=== PATIENT | female | born 1950 | race Caucasian/White ===

== ENCOUNTER 2025-01-26 21:39 | Emergency (ER) | payer MEDICARE, SELFPAY ==
[2025-01-26] VITALS (21 sets, daily range): BP systolic 83–177; BP diastolic 28–110; PULSE 30–126; RESP 12–19; TEMP 34–35.5; O2SAT 96–100; BMI 28.2
--- NOTE | ~2025-01-26 | XR_ITS ---
CLINICAL HISTORY: verify line placement and OG tube, ET tube 1 view chest x-ray Comparison: None provided Findings: The lungs are under expanded. Endotracheal tube tip 3 cm above the julio. Heart size is normal. Mild osteopenia. NG tube projected left upper quadrant/stomach. IMPRESSION: 1. Endotracheal tube tip 3 cm above the julio. 2. NG tube projected in left upper quadrant/stomach. 3. Underexpanded lungs. This document has been electronically signed by: Minh Sage MD on 01/26/2025 22:33:34
--- NOTE | ~2025-01-26 | CT_ITS ---
CLINICAL HISTORY: code, CVA?? CT head without contrast Comparison: None provided Findings: Left frontal, temporal and parietal intra-axial hematoma with surrounding vasogenic edema, area proximally 8 cm AP by 5 cm transverse by 6 cm craniocaudal with midline shift from left to right of approximately 1.6 cm, axial image number 36 of 57, with mass effect of the ventricles, with extension of the hemorrhage into the ventricular system. Interhemispheric falx subarachnoid hemorrhage extending to the tentorium. No significant atrophy-like change or white matter disease. The visualized paranasal sinuses and mastoid air cells are normal. The orbits are unremarkable. No skull fracture. IMPRESSION: 1. Large left frontal, temporal and parietal intraparenchymal hemorrhage with vasogenic edema and intraventricular extension with 1.6 cm midline shift from [id number]. 2. Interhemispheric falx and tentorial subarachnoid hemorrhages. This document has been electronically signed by: Minh Sage MD on 01/26/2025 22:57:28
[2025-01-26] MEDS: Ketamine HCl/NS 100 MG/10 ML SYRINGE IVPUSH (21:46)
--- NOTE | 2025-01-26 21:54 | ECG_ITS ---
Test Reason : UNRESPONSIVE Blood Pressure : */* mmHG Vent. Rate : 125 BPM Atrial Rate : 125 BPM P-R Int : 120 ms QRS Dur : 84 ms QT Int : 388 ms P-R-T Axes : * -25 74 degrees QTcB Int : 560 ms Sinus tachycardia Otherwise normal ECG No previous ECGs available Referred By: Isabel Davidson Electronically Signed By: Conner Ling
[2025-01-26 22:09] LABS: ABG HCO3 18 mmol/L (22-26); ABG O2 % Saturation 100.0 %
[2025-01-26 22:10] LABS: ABG Refer to POC result
--- NOTE | 2025-01-26 22:17 | ED_ITS ---
HPI - CPR General Chief Complaint: Cardiac Arrest/CPR Stated Complaint: cardiac arrest Time Seen by Provider: 01/26/25 21:59 Source: family, EMS and old records reviewed Mode of arrival: EMS History of Present Illness ED Provider: Dr. Mandy Collins HPI narrative: 74-year-old female with a history of tachycardia on metoprolol and Eliquis presenting via EMS after an apparent cardiac arrest at home. Patient was found unresponsive on the ground by her daughter and was brought in to the hospital by EMS. She was originally found to be apneic with no pulse. Original rhythm was PE a. She received 1 round of CPR with return of spontaneous circulation. Initial rhythm after ROS was bradyarrhythmia. No evidence of ST-elevation on her 12 lead per EMS. She was brought to the hospital with BVM and NPA in place. She never became responsive. There is vomit on her face. Last known well around 2:00 p.m.. Fingerstick glucose was in the 200s for EMS. No further information able to be obtained at this time. Related Data Allergies Allergy/AdvReac Type Severity Reaction Status Date / Time Unable to Assess Allergy Verified 01/26/25 22:01 Review of Systems 2 Review of Systems: Yes Unobtainable due to mental status PMFSH Social History Social History Advance Directives: Yes Advance Directives Information Provided: No Advance Directives on File: No Physical Exam 2 Exam: Exam: GENERAL: Unresponsive, intubated, GCS 3. SKIN: Pale, no rashes, trauma noted. HEENT: Normocephalic, atraumatic, unequal pupils, nonreactive to light, left > right. CHEST: Strong peripheral pulses, regular tachycardia, no murmurs rubs or gallops. PULMONARY: Apneic, course bilateral breath sounds with BVM ABDOMINAL: Softly distended, quiet bowel sounds. MUSCULOSKELETAL: No obvious injury. NEURO: GCS 3. Vital Signs: Vital Signs: Last Vital Signs Temp 93.2 F L 01/27/25 01:29 Pulse 80 01/27/25 01:29 Resp 20 01/27/25 01:29 BP 122/75 01/27/25 01:29 Pulse Ox 98 01/27/25 01:29 O2 Del Method Mechanical Ventil ation 01/27/25 01:29 FiO2 50 01/26/25 22:18 BMI result Body Mass Index 28.2 Medications Administered Discontinued Medications Generic Name Dose Route Start Last Admin Trade Name Pedro Luisq PRN Reason Stop Dose Admin Glucagon 1 mg 01/26/25 23:27 01/26/25 22:52 Glucagon Hcl 1 Mg Vial IVPUSH 01/26/25 23:28 1 mg ONCE ONE Administration Piperacillin Sod/Tazobactam 100 mls @ 200 mls/hr 01/26/25 22:15 01/26/25 23:14 Sod 4.5 gm/ Sodium Chloride IV 01/26/25 22:44 Infused ONCE ONE Infusion Vancomycin HCl 1,000 mg/ 535 mls @ 267.5 mls/hr 01/26/25 22:15 01/27/25 00:40 Vancomycin HCl 750 mg/ Sodium IV 01/27/25 00:14 Infused Chloride ONCE ONE Infusion Prothrombin Complex Concent ( 80 mls @ 480 mls/hr 01/26/25 22:32 01/26/25 23:14 Human) 2,000 unit/ IV IV 01/26/25 22:41 Infused Miscellaneous Supplies .Q10M ONE Infusion Sodium Chloride 150 mls @ 450 mls/hr 01/26/25 22:54 01/26/25 23:17 Sodium Chloride 3 % IV 01/26/25 23:13 Not Given ONCE ONE Norepinephrine Bitartrate 8 mg in 250 mls @ 0 mls/hr 01/26/25 23:00 01/27/25 01:28 Levophed IVCONT Infused .Q0M VONNIE Titration Protocol Per Protocol Propofol 1,000 mg in 100 mls @ 0 mls/hr 01/26/25 23:00 01/27/25 01:27 Diprivan IVCONT Infused .Q0M VONNIE Titration Protocol Per Protocol Sodium Chloride 150 mls @ 450 mls/hr 01/26/25 23:15 01/26/25 23:44 Sodium Chloride 3 % IV 01/26/25 23:34 Infused ONCE ONE Infusion Ketamine HCl 100 mg 01/26/25 22:55 01/26/25 21:46 Ketamine Hcl/Ns 100 Mg/10 Ml Syringe IVPUSH 01/26/25 22:56 100 mg ONCE ONE Administration Rocuronium [place] 100 mg 01/26/25 22:54 01/26/25 21:46 Rocuronium [place] 50 Mg/5 Ml Vial IVPUSH 01/26/25 22:55 100 mg ONCE ONE Administration Medical Decision Making Medical Decision Making MDM Narrative: 74-year-old female with unclear past medical history, likely atrial fibrillation due to her home medications of Eliquis and metoprolol presenting via EMS after being found unresponsive at home by family, CPR initiated by her daughter and ROSC achieved after 1 round of CPR by EMS. She has unequal pupils and sonorous respirations. Airway was established upon arrival to the emergency department by MELINDA Davidson using ketamine and rocuronium, large bore IVs in place. High suspicion for intracranial process such as intracranial hemorrhage versus large vessel occlusion. Based on what her daughter tells me who is now at bedside, patient has been feeling well lately. No recent illness including fever, cough or vomiting. She has been titrating her metoprolol because she felt like her heart rate was racing on and off over the last couple of days but otherwise has had no recent change in medications. She does not use illicit substances or alcohol according to her daughter. She has never had a seizure that the daughter is aware of but she was diagnosed with mini strokes at some point. Daughter is unclear on this detail. She has never had a true stroke. She has no focal neurologic deficits at baseline. She lives alone. Daughter reports that she found the patient lying on her back with her arms out straight beside her, sonorous respirations and totally unresponsive. She initiated CPR on scene when she arrived per dispatched erection. EMS continued CPR when they arrived. Ultimately achieved ROS. Patient is currently intubated on a propofol drip for sedation. Plan for CT imaging, blood work, ABG, reversal of Eliquis if she has a head bleed. Patient covered with Zosyn and vancomycin for potential aspiration pneumonia after vomiting during unresponsive state. 10:30 PM 01/26/2025 (Dr. Mandy Collins, D.Damien.) patient has evidence of large parenchymal/interventricular bleed. I am waiting for the radiology report but this does appear to be a large bleed with midline shift. We will contact [facility] for potential transfer for and neurosurgical consultation. Patient had an episode of bradycardia with a heart rate as low as 30, blood pressure dropped to 80/30. Initiated Levophed drip, given a dose of atropine with significant improvement in her blood pressure however, she is now hypertensive. Initiated propofol for sedation which had been originally turned off due to low blood pressures. Patient remains unresponsive off of sedation. Also initiated hypertonic saline to help with vasogenic edema. Patient is diuresing. I have updated her daughter on the plan. She understands that this is a devastating head bleed and she has a very poor prognosis. Reports that her mother would still want to be able to live if possible and request that everything continue to be done for her today. 10:35 PM 01/26/2025 (Dr. Mandy Collins D.O.) transfer center reports they have no bed availability but they will page the ICU and neuro ICU. 10:43 PM 01/26/2025 (Dr. Mandy Collins D.O.) case discussed with the [facility] transfer Center, Dr. Moore, neurosurgeon on-call. He reports her only hope would be to have an EVD placed. Recommends transfer ER to ER. Accepting is Dr. Ender Stacy. Discussed with daughter who is agreeable to transfer to [facility]. We have no critical care transport due to weather and availability. Next available transport is 2 a.m.. 11:43 PM 01/26/2025 (Dr. Mandy Collins D.O.) case discussed with [facility] transfer line, neuro ICU is not available but they do have intensive care beds. I spoke with the commercial census taker on-call who accepts patient for transfer, Dr. Galvan. Also discussed case with neurosurgeon on-call, Dr. Aquino, who has reviewed the patient's CT brain. She reports that this is a devastating bleed that is involving a large portion of the parenchyma and may not be amenable to EVD placement. Regardless, she will be evaluated when the patient arrives at [facility]. Called back [facility] to report that she will be going to [facility] instead. We are still trying to find critical care transport. Patient is accepted to the MICU [facility], room 217. Nurse to nurse [phone].. 12:10 AM 01/27/2025 (Dr. Mandy Collins, Jenny.O.) ALS transport available for transfer at this time. Patient remains hemodynamically rather unstable. Requiring both propofol and Levophed to maintain blood pressures with a systolic no higher than 140, but to maintain cerebral perfusion pressure. Her temperature is also very low at 93 degrees Fahrenheit, initiated [place]. Differential Diagnosis Differential Diagnoses: The differential diagnosis associated with the presentation includes arrhythmia, postictal state, infection, intracranial process such as hemorrhage, stroke or mass, electrolyte abnormality, hypercarbia, hypoxia, toxic encephalopathy, among many others. Broad-based workup was initiated to further evaluate the etiology of patient's symptoms based on the above exam and history. Admission/Observation Consideration of admission/observation: Escalation of care including admission/observation considered Lab Data MDM Lab Attestation statement: I reviewed the patient's lab results. 01/26/25 22:19 01/26/25 22:19 Labs: Lab Results 01/26/25 01/26/25 01/26/25 Range/Units 22:04 22:19 22:22 WBC 18.2 H (4.8-10.8) X10*3/uL RBC 4.67 (4.20-5.50) X10*6/uL Hgb 13.6 (12.0-16.0) g/dl Hct 40.7 (37.0-47.0) % MCV 87.2 (80.0-98.0) fL MCH 29.1 (27.0-33.0) pg MCHC 33.4 (31.0-35.0) g/dl RDW 12.4 (11.0-16.0) % Plt Count 251 (160-400) X10*3/uL MPV 8.6 L (9.4-12.3) fL Immature Gran % (Auto) 0.8 H (0.0-0.4) % Neut % (Auto) 87.5 H (45-73) % Lymph % (Auto) 5.4 L (20-40) % [place] % (Auto) 6.0 (2-11) % Eos % (Auto) 0.1 (0-4) % Baso % (Auto) 0.2 (0-2) % Lymph # (Auto) 1.0 L (1.2-4.9) X10*3/uL [place] # (Auto) 1.1 (0.1-1.2) X10*3/uL Eos # (Auto) 0.0 (0.0-0.4) X10*3/uL Baso # (Auto) 0.0 (0.0-0.2) X10*3/uL Abs Immat Gran (auto) 0.15 H (0.00-0.03) X10*3/uL Absolute Neuts (auto) 16.0 H (2.0-8.3) x10*3/uL Absolute Nucleated RBC 0.000 (0.0-0.012) X10*3/uL Nucleated RBC % (auto) 0.0 (0.0-0.2) /100WBC Hold Purple Top SEE NOTE Whole Blood PT (11.1-13.5) sec Whole Blood INR (0.9-1.1) Hold Blue Top SEE NOTE O2 Saturation 100.0 % ABG pH at Pt Temp 7.32 L (7.35-7.45) ABG pCO2 at Pt Temp 34 (32-45) mmHg ABG pO2 at Pt Temp 351 H (83-108) mmHg ABG HCO3 18 L (22-26) mmol/L ABG Base Excess (Actual) -6.9 mmol/L Sodium 144 (135-145) mmol/L Potassium 2.8 L* (3.3-5.1) mmol/L Chloride 110 H (96-108) mmol/L Carbon Dioxide 19 L (22-29) mmol/L Anion Gap 18 (12-20) BUN 17 H (9-16) mg/dL Creatinine 0.78 (0.5-1.4) mg/dL Estim Creat Clear Calc 54.1 Estimated GFR > 60 Random Glucose 218 H (60-115) mg/dL Lactic Acid 4.6 H* (0.5-2.0) mmol/L Calcium 7.9 L (8.4-10.2) mg/dL Magnesium 1.6 (1.6-2.6) mg/dL Total Bilirubin 0.3 (0.0-1.0) mg/dL AST 43 H (5-31) U/L ALT 13 (0-31) U/L Alkaline Phosphatase 70 (39-117) U/L Troponin I High Sens 371.6 H* (<3.5-17.0) ng/L NT-Pro-B Natriuret Pep 445.2 H (<300) pg/mL Total Protein 5.8 L (6.5-8.0) g/dL Albumin 3.7 (3.5-5.0) g/dL Hold Green Top See Note Hold Yellow Top See Note Urine Color Yellow Urine Appearance Clear Urine pH 5.5 (5.0-9.0) Ur Specific [place] 1.015 (1.005-1.025) Urine Protein Negative (Neg-Trace) mg/dL Urine Glucose (UA) 500 H (Negative) mg/dL Urine Ketones Trace (Negative) mg/dL Urine Blood Trace H (Negative) Urine Nitrite Negative (Negative) Ur Leukocyte Esterase Negative (Negative) Urine RBC 0-2 (0-2) /HPF Urine WBC 0-5 (0-5) /HPF Ur Squamous Epith Cells 0-2 (0-2) /HPF Urine Bacteria None Seen (None Seen) Hyaline Casts 0-2 (0-2) /LPF Urine Opiates Screen Not Detected (Not Detect) Ur Buprenorphine Scrn Not Detected (Not Detect) ng/mL Ur Oxycodone Screen Not Detected (Not Detect) ng/mL Urine Methadone Screen Not Detected (Not Detect) ng/mL Urine Fentanyl Screen Not Detected (Not Detect) Ur Barbiturates Screen Not Detected (Not Detect) Ur Phencyclidine Scrn Not Detected (Not Detect) Ur Amphetamines Screen Not Detected (Not Detect) U Benzodiazepines Scrn Not Detected (Not Detect) Urine Cocaine Screen Not Detected (Not Detect) U Marijuana (THC) Screen Not Detected (Not Detect) Ethyl Alcohol < 10 mg/dL 01/26/25 Range/Units 22:39 WBC (4.8-10.8) X10*3/uL RBC (4.20-5.50) X10*6/uL Hgb (12.0-16.0) g/dl Hct (37.0-47.0) % MCV (80.0-98.0) fL MCH (27.0-33.0) pg MCHC (31.0-35.0) g/dl RDW (11.0-16.0) % Plt Count (160-400) X10*3/uL MPV (9.4-12.3) fL Immature Gran % (Auto) (0.0-0.4) % Neut % (Auto) (45-73) % Lymph % (Auto) (20-40) % [place] % (Auto) (2-11) % Eos % (Auto) (0-4) % Baso % (Auto) (0-2) % Lymph # (Auto) (1.2-4.9) X10*3/uL [place] # (Auto) (0.1-1.2) X10*3/uL Eos # (Auto) (0.0-0.4) X10*3/uL Baso # (Auto) (0.0-0.2) X10*3/uL Abs Immat Gran (auto) (0.00-0.03) X10*3/uL Absolute Neuts (auto) (2.0-8.3) x10*3/uL Absolute Nucleated RBC (0.0-0.012) X10*3/uL Nucleated RBC % (auto) (0.0-0.2) /100WBC Hold Purple Top Whole Blood PT 13.5 (11.1-13.5) sec Whole Blood INR 1.1 (0.9-1.1) Hold Blue Top O2 Saturation % ABG pH at Pt Temp (7.35-7.45) ABG pCO2 at Pt Temp (32-45) mmHg ABG pO2 at Pt Temp (83-108) mmHg ABG HCO3 (22-26) mmol/L ABG Base Excess (Actual) mmol/L Sodium (135-145) mmol/L Potassium (3.3-5.1) mmol/L Chloride (96-108) mmol/L Carbon Dioxide (22-29) mmol/L Anion Gap (12-20) BUN (9-16) mg/dL Creatinine (0.5-1.4) mg/dL Estim Creat Clear Calc Estimated GFR Random Glucose (60-115) mg/dL Lactic Acid (0.5-2.0) mmol/L Calcium (8.4-10.2) mg/dL Magnesium (1.6-2.6) mg/dL Total Bilirubin (0.0-1.0) mg/dL AST (5-31) U/L ALT (0-31) U/L Alkaline Phosphatase (39-117) U/L Troponin I High Sens (<3.5-17.0) ng/L NT-Pro-B Natriuret Pep (<300) pg/mL Total Protein (6.5-8.0) g/dL Albumin (3.5-5.0) g/dL Hold Green Top Hold Yellow Top Urine Color Urine Appearance Urine pH (5.0-9.0) Ur Specific [place] (1.005-1.025) Urine Protein (Neg-Trace) mg/dL Urine Glucose (UA) (Negative) mg/dL Urine Ketones (Negative) mg/dL Urine Blood (Negative) Urine Nitrite (Negative) Ur Leukocyte Esterase (Negative) Urine RBC (0-2) /HPF Urine WBC (0-5) /HPF Ur Squamous Epith Cells (0-2) /HPF Urine Bacteria (None Seen) Hyaline Casts (0-2) /LPF Urine Opiates Screen (Not Detect) Ur Buprenorphine Scrn (Not Detect) ng/mL Ur Oxycodone Screen (Not Detect) ng/mL Urine Methadone Screen (Not Detect) ng/mL Urine Fentanyl Screen (Not Detect) Ur Barbiturates Screen (Not Detect) Ur Phencyclidine Scrn (Not Detect) Ur Amphetamines Screen (Not Detect) U Benzodiazepines Scrn (Not Detect) Urine Cocaine Screen (Not Detect) U Marijuana (THC) Screen (Not Detect) Ethyl Alcohol mg/dL Independent Interpretation I performed an independent interpretation of an: EKG and Plain X-Ray Interpretation: My independent interpretation of the ECG reveals normal sinus tachycardia with rate of 125, leftward axis, QTC 560, no ST elevations or depressions to suggest ischemic changes, no previous for comparison My independent interpretation of the chest x-ray reveals no consolidations, pulmonary edema, pleural effusion, pneumothorax, obvious bony abnormalities, ET tube in place, OG tube passes below the diaphragm. Radiology Impression Discussion of test interpretation with radiology: I have reviewed the radiologist's reading. Radiologist Impression: CT head without contrast Comparison: None provided Findings: Left frontal, temporal and parietal intra-axial hematoma with surrounding vasogenic edema, area proximally 8 cm AP by 5 cm transverse by 6 cm craniocaudal with midline shift from left to right of approximately 1.6 cm, axial image number 36 of 57, with mass effect of the ventricles, with extension of the hemorrhage into the ventricular system. Interhemispheric falx subarachnoid hemorrhage extending to the tentorium. No significant atrophy-like change or white matter disease. The visualized paranasal sinuses and mastoid air cells are normal. The orbits are unremarkable. No skull fracture. IMPRESSION: 1. Large left frontal, temporal and parietal intraparenchymal hemorrhage with vasogenic edema and intraventricular extension with 1.6 cm midline shift from [id number]. 2. Interhemispheric falx and tentorial subarachnoid hemorrhages. This document has been electronically signed by: Minh Sage MD on 01/26/2025 22:57:28 Independent Historian Clinical information obtained from an independent historian. History obtained from or confirmed by: EMS and Other (daughter) Chronic Conditions Patient?s care impacted by: Other (arrhythmia on DOAC) Procedures Central Line Placement Right Femoral: Time Out Performed: No Patient Placed on Monitor/Pulse Ox: Yes MD Prep: mask, gown and gloves Central Line Prep: Povidone-Iodine 1% Ultrasound Used for Placement: Yes Central Line Lumen Inserted: triple Post Procedure: sutured in place, good blood return, all ports aspirated, flushed, capped and sterile dressing applied Patient Tolerated Procedure: well and no complications Additional Comments: By Isabel Davidson PA-C Intubation Intubation Type:: Emergency Endotracheal Intubation Intubation Date:: 01/26/25 Time out performed: No sedative: Ketamine Mg Given: 100 paralytic: Rocuronium Mg Given: 100 Laryngoscope: fiber optic video scope ET Tube Size: 7.5 ET Tube Uncuffed: No Tube Secured Depth (cm): 20 Tube Secured Location: lips Tube Placement Confirmation: visualized tube passing through cords, equal breath sounds bilaterally, no breath sounds over epigastrium and confirmation by capnometry Patient Tolerated Procedure: well Intubation Complications: none Additional Comments: By Isabel Davidson PA-C Critical Care Time Critical Care Time Critical Care Time: Yes Total Critical Care Time: 150 Attestation: CRITICAL CARE TIME: 150 minutes of critical care time was spent in direct patient care at the bedside or in the immediate area with this patient. Critical care was necessary to treat or prevent imminent or life-threatening deterioration of the following conditions who hemodynamic instability, unresponsiveness due to intraparenchymal, intraventricular, subarachnoid hemorrhage on continuous oral anticoagulation. This patient is high risk for decompensation and/or . This time was spent assessing and managing the patient, interpreting labs and imaging, coordinating care with other medical providers, gathering history from either the patient, their representatives, EMS or chart review, and discussing management with [facility], [facility], neurosurgery, intensive care. Discharge Plan Discharge Clinical Impression: Acute spont intraparenchymal hemorrhage assoc w/ coagulopathy, Subarachnoid hemorrhage, Acute spontaneous intraventricular hemorrhage assoc w/ coagulopathy, On continuous oral anticoagulation, Acute hypokalemia, Acidosis, lactic, Demand ischemia of myocardium, Hemodynamic instability, Required emergent intubation Patient Disposition: er [facility] Hospital Transfer Details: [facility], ICU, accepting Dr. Galvan Interventions: Acute Care Transfer Worksheet (ED) Last Done: 01/27/25 01:29 Discharge Date/Time: 01/27/25 01:28 Print Language: Prydeinig
[2025-01-26 22:25] LABS: MANUAL DIFF FLAG NO
[2025-01-26 22:26] LABS: Hematocrit 40.7 % (37.0-47.0); Hemoglobin 13.6 g/dl (12.0-16.0); Imm Gran Abs Auto 0.15 X10*3/uL (0.00-0.03); Imm Gran Pct Auto 0.8 % (0.0-0.4); Lymphocytes Absolute Auto 1.0 X10*3/uL (1.2-4.9); Mean Corpuscular HGB Conc 33.4 g/dl (31.0-35.0); Mean Corpuscular Hemoglobin 29.1 pg (27.0-33.0); Mean Corpuscular Volume 87.2 fL (80.0-98.0); NRBC Abs Auto 0.000 X10*3/uL (0.0-0.012); NRBC Pct Auto 0.0 /100WBC (0.0-0.2); Platelet Count 251 X10*3/uL (160-400); Red Blood Count 4.67 X10*6/uL (4.20-5.50); White Blood Count 18.2 X10*3/uL (4.8-10.8)
[2025-01-26 22:40] LABS: Appearance Urine Clear; Glucose Urine UA 500 mg/dL (Negative); PH 5.5 (5.0-9.0); Specific Gravity - Urine 1.015 (1.005-1.025); UMIC TRIGGER UACC YES
[2025-01-26 22:43] LABS: Prothrombin Time Whole Bld POC 13.5 sec (11.1-13.5); ~PT, ~INR - Anti Coag Clinic 1.1 (0.9-1.1)
--- OUTSIDE RECORDS SUMMARY | 2025-01-26 22:48 | XMS_ITS | Clinical Summary ---
Author Organization [facility] Address [address] [place] [id number] Phone Care Team Providers Care Lock Technician Name Role Phone Bertrand Hubbard MD Primary Care Provider [phone] Allergies No known active allergies Medications vitamin E 100 units capsule Orally Active ascorbic acid, vitamin C, 500 mg Cap Orally Active MULTIVIT-MINERA LS/FERROUS FUM (MULTI VITAMIN ORAL) Daily Active glucosamine 500 mg Cap Take 1 capsule by mouth daily. with a meal Active omega-3 fatty acids (FISH OIL CONCENTRATE) 1,000 mg Cap Take 1 capsule by mouth daily. Active resveratrol 50 mg Cap Take 50 mg by mouth daily. Orally Active Medication-Free Text Zinc 10 MG Tablet, Sig: Orally Active coenzyme Q10 (CO Q-10) 30 mg capsule Take 30 mg by mouth daily. with a meal Active cholecalciferol , vitamin D3, (VITAMIN D3) 400 unit capsule Take 2 capsules by mouth daily. Active b complex vitamins capsule Take 1 capsule by mouth daily. Active apixaban (ELIQUIS) 5 mg tablet Take 1 tablet (5 mg total) by mouth 2 (two) times a day. 180 tablet 3 05/14/2024 Active atorvastatin (LIPITOR) 40 MG tablet Take 0.5 tablets (20 mg total) by mouth daily. 30 tablet 7 06/11/2024 Active metoprolol succinate (TOPROL-XL) 50 MG 24 hr tablet Take 0.5 tablets (25 mg total) by mouth every morning. 45 tablet 3 11/21/2024 Active Active Problems Problem Noted Date Diagnosed Date Other hyperlipidemia 05/14/2024 Atrial fibrillation with rapid ventricular respo nse 03/28/2023 Assessment & Plan (11/09/2023 12:52 PM EDT): Currently rate controlled at 71 bpm here in the office today. She is on metoprolol 50 mg daily and Eliquis 5 mg twice daily for rate control. She realizes that there is a lower dose of Eliquis and would like to be on the lower dose if she could. I did explain to her that she does not meet 2 of the 3 criteria which would be age greater then 80 years old, weight less than 60 kg and a creatinine greater than 1.5. She states she would like to find a holistic doctor to help her with her issues. I did recommend to her that she does not come off of her Eliquis even if she did find a holistic medication doctor to help her find supplements. Gold standard treatment for prevention of stroke would be anticoagulation and not garlic or other herbal supplements. She does report having a faster heart rate with some fluttering in her chest and I did offer her to have a Holter monitor however she wanted to see if she cut back on her trident gum chewing to see if this helps with this. I have encouraged her to continue exercising. She also is concerned with her statin and feels that her cholesterol ratio was not Horrible prior to starting the statin. Her cholesterol prior to starting the statin was 240, HDL 46, LDL 174, triglycerides 100 with a cholesterol HDL ratio 5.2. After atorvastatin 40 mg daily and her cholesterol which was drawn on 11/07/2023 shows a cholesterol of 184, HDL 58, LDL 106, triglycerides 98 and cholesterol/HDL ratio 3.2. I have agreed to allow her to try to reduce her atorvastatin to 20 mg daily we will recheck another lipid panel in 3 months. Assessment & Plan (05/09/2023 3:52 PM EST): She was found to have atrial fibrillation with RVR when she went to the emergency room. She was started on apixaban 5 mg twice daily and metoprolol 50 mg daily which she spontaneously converted to sinus rhythm. She will remain on these medications without change. She did have a CT head which does show some old infarcts but age is undetermined. Due to an elevated CHADS2 Vascor and having atrial fibrillation it would be recommended that she remain on anticoagulation. EKG today shows sinus rhythm, 62 bpm. She does come with a multitude of questions requesting whether she can travel to [place], continue exercising, questions whether she should go to cardiac rehab. She does not follow a great diet and knows it is high in sodium and sugar. I have asked her to cut back on both of those things to see if this will help with her PVCs that were noted on her monitor. We did review that monitor today. I also discussed with her cardiac rehab is something that she would not qualify for unless she had an event such as a stent, UT or cardiac surgery. As far as her activity she can resume her normal activities without restriction. Is also okay from a cardiac standpoint if she travels to [place]. Assessment & Plan (03/29/2023 11:59 AM EST): Cardiology was consulted. [id number] Score was 2, HAS-BLED Score 1 (AC should be considered pt low risk major bleed) Pt converted to NSR after CCB IV and was started on low-dose beta-shine. Lipid panel also showed increase in LDL cholesterol which is a risk factor for stroke and patient was started on atorvastatin 40 mg. Echocardiogram was also done which showed normal LV size and wall thickness with an EF of 60 to 65% and no clear wall motion abnormalities. Patient went into A-fib with RVR on 03/29 again, given IV Lopressor Encounters Date Type Department Care Team Description 11/21/2024 9:00 AM EDT Office Visit [facility] [address] [place] [address] 3rd Floor, [address] [place] [address] Alexx Goodman MD Atrial fibrillation with rapid ventricular response (Primary Dx); Hyperlipidemia, unspecified hyperlipidemia type; Encounter for anticoagulation discussion and counseling 11/06/2024 9:31 AM EDT - 11/06/2024 11:59 PM EDT Hospital Encounter [facility] [address] [place] [address] [place] [address] Teo Oliveros MD Discharge Disposition: Home or Self Care 11/05/2024 9:08 AM EDT - 11/05/2024 11:59 PM EDT Hospital Encounter [facility] [address] [place] [address] Teo Oliveros MD Discharge Disposition: Home or Self Care 05/14/2024 Procedure Pass [facility] [place] [address] from Last 3 Months Family History Medical History Relation Comments CV disease Father Leukemia Father Prostate cancer Father Breast cancer Mother Relation Status Comments Father Mother Social History Tobacco Use Types Packs/Day Years Used Date Smoking Tobacco: Former Cigarettes Q uit: 1999 Smokeless Tobacco: Never Tobacco Cessation:Counseling Given: Not Answered Alcohol Use Standard Drinks/Week Comments Not Currently 0 (1 standard drink = 0.6 oz pur e alcohol) quit 1988 Education Answer Date Recorded Are you interested in more education? Not on yola e 08/12/2022 Are you concerned about learning? Not on file 08/12/2022 No 08/12/2022 No 08/12/2022 Digital Access Answer Date Recorded No 09/10/2022 No 09/10/2022 Reliable internet access at home? Not on file 09/10/2022 Device with a working camera? Not on file Intimate Partner Violence Answer Date R ecorded Are you denied basic needs s uch as food, clothing, or medical care? No 02/18/2024 In the past 12 months have y ou been in a relationship with a person who hurts, threatens, or tries to control you? No 02/18/2024 Are you denied basic needs s uch as food, clothing, or medical care? No 02/18/2024 In the past 12 months have y ou been in a relationship with a person who hurts, threatens, or tries to control you? No 02/18/2024 Comments No Sex and Gender Information Value Date Recorded Sex Assigned at Female 03/28/2023 4:56 PM EST Legal Sex Female 10:00 PM EDT Gender Identity Choose not to disclose 12:36 PM EST Sexual Orientation Not on file Occupation Industry Job Start Date Job End Date Working Not on file Not on file Not on file Last Filed Vital Signs Vital Sign Reading Time Taken Comments Blood Pressure 122/60 11/21/2024 9:05 AM EDT Pulse 57 11/21/2024 9:05 AM EDT Temperature 36.6 C (97.9 F) 02/18/2024 10:46 PM EST Respiratory Rate 16 02/18/2024 10:46 PM EST Oxygen Saturation 97% 05/14/2024 11:00 AM EST Inhaled Oxygen Concentration - - Weight 64 kg (141 lb) 11/21/2024 9:05 AM EDT Height 154.9 cm (5' 0.98 ) 11/21/2024 9:05 AM ED T Body Mass Index 26.66 11/21/2024 9:05 AM EDT Plan of Treatment Upcoming Encounters Date Type Department Care Team (Late st Contact Info) Description 05/23/2025 3:15 PM EST Appointment , Bone Density - [facility] [address] [place] [address] Cheryl Herzog NP [address] [facility] [address] [place] [address] 05/27/2025 9:20 AM EST Office Visit [facility] [address] [facility] 3rd Floor, [address] [place] [address] Alexx Goodman MD 22 [facility], [address] [place] [address] [email or web address] Health Maintenance Due Date Last Done Comments Adult Td,Tdap Booster 1951 DEPRESSION SCREENING 1963 HEPATITIS C SCREENING 1969 HEPATITIS A VACCINES (1 of 2 - Risk 2-dose series) 1970 COLOGUARD 1996 COLONOSCOPY 1996 COLORECTAL CANCER SCREENING 1996 FIT TEST 1996 FOBT 1996 SIGMOIDOSCOPY 1996 VIRTUAL COLONOSCOPY 1996 PNEUMOCOCCAL VACCINES (50+ years) (1 of 1 - PCV) 2001 ZOSTER VACCINES (1 of 2) 2001 OSTEOPOROSIS SCREENING INITIAL (ONE-TIME) 2016 INFLUENZA VACCINE (#1) 2024 12/28/2019 COVID-19 VACCINE (1 - season) 2024 SMOKING Hx and SMOKELESS TOBACCO SCREENING 07/30/2025 07/30/2024 CREATININE LEVEL 11/06/2025 11/06/2024, 06/2023, 11/07/2023, Additional history exists RSV VACCINE (1 - 1-dose 75+ series) 2026 MAMMOGRAM 07/30/2026 07/30/2024, 09/0 09/2022, 03/24/2021, Additional history exists LIPID PANEL 11/06/2029 11/06/2024, 10/16, 03/29/2023 HIB VACCINES Aged Out No longer eligi ble based on patient's age to complete this topic MENINGOCOCCAL VACCINES (ACWY) Aged Out No longer eligible based on patient's age to complete this topic MENINGOCOCCAL VACCINES (B) Aged Out N o longer eligible based on patient's age to complete this topic Medical Devices Not on file Procedures Procedure Name Priority Date/Time Associated Diagnosis Comments COMPREHENSIVE METABOLIC PANEL Routine 11/06/2024 9:45 AM EDT Atrial fibrillation with rapid ventricular response Other hyperlipidemia Dyspnea, unspecified type LIPID PANEL Routine 11/06/2024 9:45 AM EDT Other hyperlipidemia TTE COMPREHENSIVE Routine 11/05/2024 10: 14 AM EDT Dyspnea, unspecified type BI MAMMOGRAM SCREENING WITH TOMOSYNTHESIS WITH CAD (BILATERAL) Routine 07/30/2024 3:06 PM EDT Breast screening from Last 3 Months or Most Recently Relevant to Health Maintenance Results * (ABNORMAL) Comprehensive metabolic panel (11/06/2024 9:45 AM EDT) SODIUM 140 133 - 146 mmol/L [facility] POTASSIUM 4.8 3.3 - 5.1 mmol/L [facility] CHLORIDE 104 96 - 108 mmol/L [facility] CO2 28 21 - 35 mmol/L [facility] BUN 15 6 - 19 mg/dL [facility] CREATININE 0.80 0.5 - 1.5 mg/dL [facility] GLUCOSE 86 70 - 99 mg/dL [facility] ALBUMIN 3.8(L) 3.9 - 4.8 g/dL [facility] TOTAL PROTEIN 6.1(L) 6.5 - 8.0 g/dL [facility] CALCIUM 9.1 8.4 - 10.3 mg/dL [facility] ALKALINE PHOSPHATASE 73 39 - 117 U/L [facility] TOTAL BILIRUBIN 0.4 0.0 - 1.2 mg/dL [facility] AST 21 0 - 37 U/L [facility] ALT 6 0 - 40 U/L [facility] GLOBULIN 2.3 1 - 4.8 g/dL [facility] EGFR 78 >59 mL/min/1.7 3m2 [facility] Comment:Estimated glomerular filtration rate calculated using the CKD-EPI refit equation. ANION GAP 13 10 - 20 mmol/L [facility] Blood 11/06/2024 9:45 AM EDT 11/06/2024 9:50 AM EDT us Teo Oliveros MD LAB BLOOD ORDERABLES Final Result Performing Organization Address City/State/[facility] Co de Phone Number [address] [address] * (ABNORMAL) Lipid panel (11/06/2024 9:45 AM EDT) HDL 52 mg/dL [facility] Comment: Interpretation <40 mg/dL: Low HDL cholesterol (major risk factor for CHD) Greater than or equal to 60 mg/dL: High HDL cholesterol ( negative risk factor for CHD) HDL - cholesterol is affected by a number of factors, e.g. smoking, excerise, hormones, sex and age. CHOLESTEROL 166 0 - 240 mg/dL [facility] TRIGLYCERIDES 144 30 - 160 mg/dL [facility] LDL 85 50 - 129 mg/dL [facility] Comment: LDL levels in terms of risk for coronary heart disease: <100 mg/dL: Optimal 100-129 mg/dL: Near or above optimal 130-159 mg/dL: Borderline high 160-189 mg/dL: High >190 mg/dL: Very High CARDIAC RISK RATIO 3.2(L) 3.3 - 4.4 [facility] Blood 11/06/2024 9:45 AM EDT 11/06/2024 9:51 AM EDT us Teo Oliveros MD LAB BLOOD ORDERABLES Final Result [address] [address] * TTE COMPREHENSIVE (11/05/2024 10:14 AM EDT) Height 155 cm Weight 64 kg Systolic BP 116 mmHg Diastolic BP 82 mmHg Interventricular Septum Thickness 8 6 - 11 mm Left Ventricle Internal Diameter End Diastole 39 37 - 52 mm Left Ventricle Internal Diameter End Systole 26 <35 mm Left Ventricular Outflow Tract Diameter 20.0 mm Left Ventricular Posterior Wall Thickness 8 6 - 11 mm Left Ventricle Ea Lateral Wave Speed 5.3 cm/s Left Ventricle Ea Septal Wave Speed 4.9 cm/s Ejection Fraction 69 50 - 75 Percent Left Atrium Dimension Anterior-Posterior 26 15 - 40 mm Aortic Valve Mean Gradient 3 mmHg Aortic Valve Time Velocity Integral 289.0 mm Aortic Valve Peak Velocity 1.2 m/s Aortic Valve Peak Gradient 6 mmHg Aortic Arch Diameter 31 mm Aortic Sinus Diameter 31 <40 mm Ascending Aorta Diameter 34 <36 mm Inferior Vena Cava Diameter 16 <21 mm Mitral Valve Deceleration Time 174 ms Left Ventricle A Wave Speed 120.0 cm/s Left Ventricle E Wave Speed 69.2 cm/s Mitral Valve Mean Gradient 1 mmHg Mitral Valve Peak Gradient 3 mmHg Mitral Valve Area Continuity Equation 2.70 cm2 Pulmonary Valve Peak Velocity 0.8 m/s Pulmonary Valve Peak Gradient 3 mmHg Right Ventricle Basal Diameter 27 25 - 41 mm Tricuspid Valve Peak Velocity 2.5 m/s Raw LV EF% 56 % MV E/E' Tissue Velocity Lateral 13.06 Relative Wall Thickness 0.41 0.22 - 0.42 MV E/A ratio 0.6 MV E/e' septal 14.12 Left Ventricle E/e' Average 13.6 Aortic Valve Prosthetic Peak Gradient 6 mmHg Aorta Sinus Index by Height 2.00 cm/m Aorta Sinus CSA index by Height 4.87 cm2/m Asc Aorta CSA Index by Height 5.85 cm2/m Mitral Valve Prosthetic Peak Gradient 3 mmHg Mitral Valve Prosthetic Mean Gradient 1 mmHg Right Ventricle to Right Atrium Pressure Gradient 25 mmHg Right Ventricle Peak Systolic Pressure (Assuming RAP 10) 35 mmHg MGB CV ECHO TV RVSP (ASSUMING RAP OF 5) 30 mmHg RVSP (Exclusive of RAP) 25 mmHg Pulmonic Valve Prosthetic Peak Gradient 3 mmHg Echo E/Ea 14.12 Left Atrial Volume 32 mL Left Atrial Volume Index by Height 21 mL/m Aortic Valve Prosthetic Mean Gradient 3 mmHg Body Surface Area 1.62 m2 Left Atrial Volume Index 20 16 - 34 mL/m2 Right Ventricle Peak Systolic Pressure 28 mmHg Left Ventricle indexed to BSA 55.4 g/m2 Aortic Valve Sinus Index by BSA 19 mm/m2 Ascending Aorta Index 21 mm/m2 Right Atrium Pressure Estimated 3 mmHg Ascending Aorta Index 21 mm Aortic Sinus Index 19 mm Ascending Aorta Diameter 21 mm Aortic Valve Sinus Index 1 19 19 - 27 mm AO ASC DIAM BSA INDEX 20.99 Anatomical Region Laterality Modality Heart Ultrasound Narrative 11/05/2024 10:48 AM EDT Images from the original result were not included. 1. The indication for the study is dyspnea on exertion. The estimated ejection fraction of the left ventricle is totally normal at 60 to 65%. Diastolic function is normal regional wall motion is normal and left ventricular thickness is normal. 2. Normal RV size and function. 3. Trileaflet aortic valve there is no evidence of aortic stenosis the mean gradient is 3 mmHg. The ascending aortic root is normal size. 4. Mild mitral and mild tricuspid insufficiency, the pulmonary artery pressure is 28 mmHg. 5. Normal pericardium and when compared to the prior echocardiogram done March 28, 2023, there is no significant change and no obvious cause on the echo to explain the patient's shortness of breath. Left Ventricle The left ventricle is normal in size. There is normal wall thickness. There is normal left ventricular systolic function. The LV ejection fraction is 60-65% (visually estimated). Simpsons biplane EF 62%. LV diastolic function appears within normal limits for age. Right Ventricle The right ventricle is normal in size. There is normal right ventricular systolic function. Left Atrium The left atrium is normal in size. The left atrial volume index by BSA is 20 mL/m2. Right Atrium The right atrium is normal in size. Mitral Valve The mitral valve appears normal. There is no mitral stenosis. There is mild mitral regurgitation with a centrally directed jet. Tricuspid Valve The tricuspid valve appears normal. There is no tricuspid stenosis. There is mild tricuspid regurgitation with a centrally directed jet. The RV systolic pressure was calculated at 28 mmHg (using TR peak velocity of 2.5 m/s and assuming an RA pressure of 3 mmHg). Aortic Valve The aortic valve is tricuspid. There is leaflet thickening without stenosis. There is no aortic stenosis. There is trace aortic regurgitation. The visualized portions of the thoracic aorta appear normal in size. Pulmonic Valve The pulmonic valve appears normal. There is no pulmonic stenosis. There is no pulmonic regurgitation. Pericardium There is no pericardial effusion. General Findings The image quality was good (2). Technique(s) used in the evaluation: Multiplane, Color flow Doppler, Spectral Doppler and Epiaortic scan. Adequate windows include: parasternal, apical, subcostal and suprasternal. Patient tolerated the procedure well. Comparison Findings Compared to prior TTE on 03/28/2023, IAS/IVS The interatrial septum appears normal. us Teo Oliveros MD CV ECHO ORDERABLES Final Re sult * BI MAMMOGRAM SCREENING WITH TOMOSYNTHESIS WITH CAD (BILATERAL) (07/30/2024 3:06 PM EDT) Anatomical Region Laterality Modality Breast Left, Breast Right, Breast Bilateral Bila teral Mammography 07/31/2024 7:51 AM EDT Impressions 07/31/2024 7:55 AM EDT No mammographic evidence of malignancy in either breast. Annual screening mammography is recommended. BI-RADS 1 NEGATIVE The patient will be notified of the results and recommendations. Narrative 07/31/2024 7:55 AM EDT BI MAMMOGRAM SCREENING WITH TOMOSYNTHESIS WITH CAD (BILATERAL) Additional patient information: Screening. COMPARISON: Comparison is made with relevant prior imaging. Breast composition: The breasts are almost entirely fatty. FINDINGS: No abnormal masses, suspicious calcifications, or other significant findings are identified mammographically in either breast. Procedure Note Viet Parra MD - 07/31/2024 BI MAMMOGRAM SCREENING WITH TOMOSYNTHESIS WITH CAD (BILATERAL) Additional patient information: Screening. COMPARISON: Comparison is made with relevant prior imaging. Breast composition: The breasts are almost entirely fatty. FINDINGS: No abnormal masses, suspicious calcifications, or other significantfindings are identified mammographically in either breast. IMPRESSION: No mammographic evidence of malignancy in either breast. Annual screening mammography is recommended. BI-RADS 1 NEGATIVE The patient will be notified of the results and recommendations. Bertrand Hubbard MD IMG MG EXAMS Final Res ult from Last 3 Months or Most Recently Relevant to Health Maintenance Insurance MEDICARE PART A & B [employer] Member Subscriber Plan / Payer (Ef fective 2019-Present) Name:Joel Joshi Relation to Subscriber:Self Name:Joel Joshi Payer ID:Not on file Group ID:Not on file Type:[employer] Address: [facility] [address] MEDICARE PART A & B GENERIC COMMERCIAL Member Subscriber Plan / Payer (Ef fective 2019-Present) Name:MadelynJoel beltre Jenny Relation to Subscriber:Self Name:Joel Joshi Payer ID:Not on file Group ID:Not on file Type:[employer] Address: [facility] [address] MEDICARE PART A & B GENERIC COMMERCIAL MEDICARE PART A & B GENERIC COMMERCIAL MEDICARE PART A & B GENERIC COMMERCIAL [place] [address] MEDICARE PART A & B GENERIC COMMERCIAL MEDICARE PART A & B [employer] Member Subscriber Plan / Payer ( fective 2019-Present) Name:Joel Joshi Relation to Subscriber:Self Name:Joel Joshi Payer ID:Not on file Group ID:Not on file Type:[employer] Address: [address] MEDICARE PART A & B GENERIC COMMERCIAL [facility] Address: [facility] [address] MEDICARE PART A & B GENERIC COMMERCIAL [facility] Advance Directives For more information, please contact: [phone] (9AM - 5PM Becky/[facility], Monday-Monday) * Full Code (Latest Code Status on File) Date Activated Date Inactivated Comments 03/28/2023 7:24 PM Question Answer Comments Code Status Confirmed With: PatientFamily Care Teams Lock Technician Relationship Specialty Start Date End Date Bertrand Hubbard MD [address] [place] [id number] PCP - General Internal Medicine 03/05/23 Additional Source Comments The information contained in this document represents components of the legal health record. It is not the complete legal health record.[facility]
--- OUTSIDE RECORDS SUMMARY | 2025-01-26 22:48 | XMS_ITS | Encounter Summary ---
Author Organization [facility] Address [address] [place] [address] Phone Care Team Providers Care Supervisor Metal Furniture Assembly Name Role Phone Bertrand Hubbard MD Primary Care Provider [phone] Encounter Details Date Type Department Care Team (Late st Contact Info) Description 04/05/2023 Procedure Pass Non-Invasive Cardiology [address] [place], [place] [id number] Social History Tobacco Use Types Packs/Day Years Used Date Smoking Tobacco: Former Cigarettes Q uit: 1999 Smokeless Tobacco: Never Alcohol Use Standard Drinks/Week Comments Not Currently [...] with a working camera? Not on file Comments No Sex and Gender Information Value Date Recorded Sex Assigned at Female 03/28/2023 4:56 PM EST Legal Sex Female 10:00 PM EDT Gender Identity Choose not to disclose 12:36 PM EST Sexual Orientation Not on file Occupation Industry Job Start Date Job End Date Working Not on file Not on file Not on file documented as of this encounter Plan of Treatment Upcoming Encounters Date Type Department Care Team (Late st Contact Info) Description 05/23/2025 3:15 PM EST Appointment [facility] [address] [place] [address] Cheryl Herzog NP [address] [facility] [address] [place] [address] 05/27/2025 9:20 AM EST Office Visit [facility] [address] [facility] 3rd Floor, [address] [place] [address] Alexx Goodman MD 22 [facility], [address] [place] [address] [email or web address] documented as of this encounter Visit Diagnoses Not on filedocumented in this encounter Care Teams Supervisor Metal Furniture Assembly Relationship Specialty Start Date End Date Bertrand Hubbard MD [address] [facility] [address] [place] [address] PCP - General Internal Medicine 03/05/23 documented as of this encounter Additional Source Comments The information contained in this document represents components of the legal health record. It is not the complete legal health record.[facility]
--- OUTSIDE RECORDS SUMMARY | 2025-01-26 22:48 | XMS_ITS | Encounter Summary ---
Author Organization [facility] Address [address] [facility] [address] [place] [address] Phone Care Team Providers Care Special Warfare Combatant Crewman Name Role Phone Beni Woodward MD Primary Care Provider [phone] Bertrand Hubbard MD Primary Care Provider [phone] Encounter Details Date Type Department Care Team (Late st Contact Info) Description 08/10/2017 Ancillary Orders Virtual Department 30 [place] [address] Beni Woodward MD [address] [address] Breast screening Social History Tobacco Use Types Packs/Day Years Used Date Smoking Tobacco: Never Assessed Comments Unknown Sex and Gender Information Value Date Recorded Sex Assigned at Female 03/28/2023 4:56 PM EST Legal Sex Female 10:00 PM EDT Gender Identity Choose not to disclose 12:36 PM EST Sexual Orientation Not on file documented as of this encounter Plan of Treatment Upcoming Encounters Date Type Department Care Team (Late st Contact Info) Description 05/23/2025 3:15 PM EST Appointment [facility], Bone [facility] 30 [place] [address] Cheryl Herzog NP 35 [facility] [address] [place] [address] 05/27/2025 9:20 AM EST Office Visit [facility] [address] [facility] 3rd Floor, [address] [place] [address] Alexx Goodman MD [address] [place] [address], [address] [place] [address] [email or web address] documented as of this encounter Results * BI MAMMOGRAM SCREENING WITH TOMOSYNTHESIS WITH CAD (BILATERAL) (08/17/2017 4:10 PM EDT) Anatomical Region Laterality Modality Breast Left, Breast Right, Breast Bilateral Bila teral Mammography 08/18/2017 8:36 AM EDT Impressions 08/18/2017 9:50 AM EDT No findings suspicious for malignancy. In the absence of a worrisome palpable abnormality, annual screening mammography is recommended. BI-RADS CATEGORY: 2 - Benign finding. DENSITY: The breast tissue is almost entirely fat. POS CDHMAMA Narrative 08/18/2017 9:50 AM EDT COMPARISON: 07/08/2011 through 12/14/2015. Bilateral 3-D tomosynthesis with 2-D reconstructions in the CC and MLO projection of each breast was obtained. Computer-aided detection system also utilized. No new mass, asymmetry, architectural distortion or suspicious calcifications have become apparent on either side. Chronic asymmetric density lateral left breast unchanged for years Procedure Note Pepe Alamo MD - 08/18/2017 COMPARISON: 07/08/2011 through 12/14/2015. Bilateral 3-D tomosynthesis with 2-D reconstructions in the CC and MLOprojection of each breast was obtained. Computer-aided detection systemalso utilized. No new mass, asymmetry, architectural distortion or suspiciouscalcifications have become apparent on either side. Chronic asymmetric density lateral left breast unchanged for years IMPRESSION: No findings suspicious for malignancy. In the absence of a worrisomepalpable abnormality, annual screening mammography is recommended. BI-RADS CATEGORY: 2 - Benign finding. DENSITY: The breast tissue is almost entirely fat. POS CDHMAMA Beni Woodward MD IMG MG EXAMS Final Result documented in this encounter Visit Diagnoses Diagnosis Breast screening Breast screening, unspecified Breast screening Breast screening, unspecified documented in this encounter Additional Health Concerns Infection Onset Date Last Indicated Resolved Time CoV-Risk Comment:Neg covid 03/28/2023 03/28/2023 03/29/2023 6:[address] documented as of this encounter Care Teams Special Warfare Combatant Crewman Relationship Specialty Start Date End Date Beni Woodward MD [address] [place] [address] PCP - General 04/20/17 03/04/23 Bertrand Hubbard MD 300 [address] [facility] [address] [place] [address] PCP - General Internal Medicine 03/05/23 documented as of this encounter Additional Source Comments The information contained in this document represents components of the legal health record. It is not the complete legal health record.[facility]
--- OUTSIDE RECORDS SUMMARY | 2025-01-26 22:48 | XMS_ITS | Encounter Summary ---
Author Organization [facility] Address [address] [facility] [address] [place] [address] Phone Care Team Providers Care Gasket Inspector Name Role Phone Bertrand Hubbard MD Primary Care Provider [phone] Encounter Details Date Type Department Care Team (Late st Contact Info) Description 03/05/2023 Procedure Pass [facility], Ct Scan - [address] [address] Social History Tobacco Use Types Packs/Day Years [...] on file documented as of this encounter Functional Status * Calculated C-SSRS Risk Score (Lifetime/Recent) Answer Date of Assessment Author No Risk Indicated 03/05/2023 1:44 PM EST Ariana Grissom * [place] Suicide Severity Rating Scale (Screener/Recent Self-Report) Question Answer Date of Assessment Author 1. Wish to be (Past 1 Month) No 023 1:44 PM EST Ariana Grissom 2. Non-Specific Active Suici aga Thoughts (Past 1 Month) No 03/05/2023 1:44 PM EST Dayana Grissom on 6. Suicidal Behavior (Lifetime) No 3 1:44 PM EST Ariana Grissom documented as of this encounter Plan of Treatment Upcoming Encounters Date Type Department Care Team (Late st Contact Info) Description 05/23/2025 3:15 PM EST Appointment [facility], [facility] 30 [place] [address] Cheryl Herzog NP 35 [facility] [address] [place] [address] 05/27/2025 9:20 AM EST Office Visit [facility] 22 [facility] 3rd Floor, [address] [place] [address] Alexx Goodman MD 22 [facility], [address] [place] [address] [email or web address] documented as of this encounter Visit Diagnoses Not on filedocumented in this encounter Additional Health Concerns Infection Onset Date Last Indicated Resolved Time CoV-Risk Comment:Neg covid 03/28/2023 03/28/2023 03/29/2023 6:[address] documented as of this encounter Care Teams Gasket Inspector Relationship Specialty Start Date End Date Bertrand Hubbard MD 300 [facility] [address] [place] [address] PCP - General Internal Medicine 03/05/23 documented as of this encounter Additional Source Comments The information contained in this document represents components of the legal health record. It is not the complete legal health record.[facility]
--- OUTSIDE RECORDS SUMMARY | 2025-01-26 22:48 | XMS_ITS | Encounter Summary ---
Author Organization [facility] Address [address] [facility] [address] [place] [address] Phone Care Team Providers Care Story Teller Name Role Phone Beni Woodward MD Primary Care Provider [phone] Bart Hubbard MD Primary Care Provider [phone] Encounter Details Date Type Department Care Team (Late st Contact Info) Description 05/20/2019 Ancillary Orders Virtual Department 30 [place] [address] Beni Woodward MD [address] [address] Breast screening Social History Tobacco Use Types Packs/Day Years Used Date Smoking Tobacco: Never Assessed Comments No Sex and Gender Information Value Date Recorded Sex Assigned at Female 03/28/2023 4:56 PM EST Legal Sex Female 10:00 PM EDT Gender Identity Choose not to disclose 12:36 PM EST Sexual Orientation Not on file documented as of this encounter Plan of Treatment Upcoming Encounters Date Type Department Care Team (Late st Contact Info) Description 05/23/2025 3:15 PM EST Appointment [facility], Bone [facility] [address] [place] [address] Cheryl Herzog NP 35 [facility] [address] [place] [address] 05/27/2025 9:20 AM EST Office Visit [facility] [address] [facility] 3rd Floor, [address] [place] [address] Alexx Goodman MD [address] [place] [address], [address] [place] [address] [email or web address] documented as of this encounter Results * BI MAMMOGRAM SCREENING WITH TOMOSYNTHESIS WITH CAD (BILATERAL) (05/28/2019 9:18 AM EST) Anatomical Region Laterality Modality Breast Left, Breast Right, Breast Bilateral Bila teral Mammography 05/28/2019 9:47 AM EST Impressions 05/28/2019 9:50 AM EST No mammographic evidence of malignancy. BI-RADS CATEGORY: 1 - Negative. DENSITY: The breast tissue is almost entirely fat. POS - CDHMAMA Narrative 05/28/2019 9:50 AM EST Standard digital full-field 2-D C view and two-plane tomographic imaging was performed and compared with multiple prior studies, most recently 08/17/2017, with utilization of computer-aided detection. The breasts are almost entirely fatty. The stromal markings are essentially unchanged in overall appearance and distribution. No dominant spiculated mass, suspicious clustered microcalcifications, or focal zone of pathologic skin thickening or retraction are noted to have arisen in the interim. Procedure Note Bart Martins MD - 05/28/2019 Standard digital full-field 2-D C view and two-plane tomographic imagingwas performed and compared with multiple prior studies, most /03/2018, with utilization of computer-aided detection. The breasts are almost entirely fatty. The stromal markings areessentially unchanged in overall appearance and distribution. No dominantspiculated mass, suspicious clustered microcalcifications, or focal zoneof pathologic skin thickening or retraction are noted to have arisen inthe interim. IMPRESSION: No mammographic evidence of malignancy. BI-RADS CATEGORY: 1 - Negative. DENSITY: The breast tissue is almost entirely fat. POS - CDHMAMA Beni Woodward MD IMG MG EXAMS Final Result documented in this encounter Visit Diagnoses Diagnosis Breast screening Breast screening, unspecified Breast screening Breast screening, unspecified documented in this encounter Additional Health Concerns Infection Onset Date Last Indicated Resolved Time CoV-Risk Comment:Neg covid 03/28/2023 03/28/2023 03/29/2023 6:[address] documented as of this encounter Care Teams Story Teller Relationship Specialty Start Date End Date Beni Woodward MD 300 [address] [place] [address] PCP - General 04/20/17 03/04/23 Bart Hubbard MD 300 [address] [facility] 102 [place] [address] PCP - General Internal Medicine 03/05/23 documented as of this encounter Additional Source Comments The information contained in this document represents components of the legal health record. It is not the complete legal health record.[facility]
--- OUTSIDE RECORDS SUMMARY | 2025-01-26 22:48 | XMS_ITS | Encounter Summary ---
Author Organization [facility] Address [address] [place] [address] Phone Care Team Providers Care Mechanic Name Role Phone Bertrand Hubbard MD Primary Care Provider [phone] Encounter Details Date Type Department Care Team (Late st Contact Info) Description 05/14/2024 Procedure Pass [facility] [address] [place] [address] Social History Tobacco Use Types Packs/Day Years [...] Info) Description 05/23/2025 3:15 PM EST Appointment [facility], Bone Density [facility] 30 [place] [address] Cheryl Herzog NP 35 [facility] [address] [place] [address] 05/27/2025 9:20 AM EST Office Visit [facility] 22 [facility] 3rd Floor, [address] [place] [address] Alexx Goodman MD 22 [facility], [address] [place] [address] [email or web address] documented as of this encounter Visit Diagnoses Not on filedocumented in this encounter Care Teams Mechanic Relationship Specialty Start Date End Date Bertrand Hubbard MD 300 [facility] [address] [place] [address] PCP - General Internal Medicine 03/05/23 documented as of this encounter Additional Source Comments The information contained in this document represents components of the legal health record. It is not the complete legal health record.[facility]
--- OUTSIDE RECORDS SUMMARY | 2025-01-26 22:48 | XMS_ITS | Encounter Summary ---
Author Organization [facility] Address [address] [place] [address] [place] [address] Phone Care Team Providers Care Correctional Officer Chief Name Role Phone Bertrand Hubbard MD Primary Care Provider [phone] Encounter Details Date Type Department Care Team (Late st Contact Info) Description 02/16/2024 Procedure Pass [facility] - [address] [place] [address] Social History Tobacco Use Types Packs/Day Years [...] Date of Assessment Author No Risk Indicated 02/18/2024 7:11 PM EST Morelia Chen RN * [place] Suicide Severity Rating Scale (Screener/Recent Self-Report) Question Answer Date of Assessment Author 1. Wish to be (Past 1 Month) No 024 7:11 PM EST Gerard Chen RN 2. Non-Specific Active Suici aga Thoughts (Past 1 Month) No 02/18/2024 7:11 PM EST Gerard Chen RN 6. Suicidal Behavior (Lifetime) No 7:11 PM EST Gerard Chen RN documented as of this encounter Plan of Treatment Upcoming Encounters Date Type Department Care Team (Late st Contact Info) Description 05/23/2025 3:15 PM EST Appointment [address] [address] Cheryl Herzog NP 35 [facility] [address] [place] [address] 05/27/2025 9:20 AM EST Office Visit [facility] 22 [facility] 3rd Floor, [address] [place] [address] Alexx Goodman MD 22 [facility], [address] [place] [address] [email or web address] documented as of this encounter Visit Diagnoses Not on filedocumented in this encounter Care Teams Correctional Officer Chief Relationship Specialty Start Date End Date Bertrand Hubbard MD [address] [place], [place] [address]annabel [address] [place] [address] PCP - General Internal Medicine 03/05/23 documented as of this encounter Additional Source Comments The information contained in this document represents components of the legal health record. It is not the complete legal health record.[facility]
--- OUTSIDE RECORDS SUMMARY | 2025-01-26 22:48 | XMS_ITS | Encounter Summary ---
Author Organization [facility] Address [address] [facility] [address] [place] [address] Phone Care Team Providers Care Audio Production Instructor Name Role Phone Beni Woodward MD Primary Care Provider [phone] Bart Hubbard MD Primary Care Provider [phone] Encounter Details Date Type Department Care Team (Late st Contact Info) Description 05/28/2019 Ancillary Orders [facility], X-Ray - [address] [place] [address] Beni Woodward MD [address] [address] Cough Social History Tobacco Use Types Packs/Day Years [...] Info) Description 05/23/2025 3:15 PM EST Appointment [facility], Bone Density - [facility] 30 [place] [address] Cheryl Herzog NP 35 [facility] [address] [place] [address] 05/27/2025 9:20 AM EST Office Visit [facility] 22 [facility] 3rd Floor, [address] [place] [address] Alexx Goodman MD 22 [facility], [address] [place] [address] [email or web address] documented as of this encounter Results * XR CHEST PA AND LATERAL 2 VIEWS (05/28/2019 9:30 AM EST) Anatomical Region Laterality Modality Chest Radiographic Janene ging 05/28/2019 9:34 AM EST Impressions 05/28/2019 9:34 AM EST No evidence of active cardiopulmonary disease. POS [id number] Narrative 05/28/2019 9:34 AM EST No comparison studies are available. Frontal and lateral views reveal the lungs to be well-expanded and overall clear without focal infiltrates or pleural effusions present. The heart and pulmonary vessels are within normal limits in size and the visualized bony thorax appears intact. Procedure Note Bart Martins MD - 05/28/2019 No comparison studies are available. Frontal and lateral views reveal thelungs to be well-expanded and overall clear without focal infiltrates orpleural effusions present. The heart and pulmonary vessels are withinnormal limits in size and the visualized bony thorax appears intact. IMPRESSION: No evidence of active cardiopulmonary disease. POS [id number] Beni Woodward MD IMG XR CHEST Final Result documented in this encounter Visit Diagnoses Diagnosis Cough Cough documented in this encounter Additional Health Concerns Infection Onset Date Last Indicated Resolved Time CoV-Risk Comment:Neg covid 03/28/2023 03/28/2023 03/29/2023 6:[address] documented as of this encounter Care Teams Audio Production Instructor Relationship Specialty Start Date End Date Beni Woodward MD 300 [address] Esp[address] [address] PCP - General 04/20/17 03/04/23 Bart Hubbard MD 300 [address] [place] [address] PCP - General Internal Medicine 03/05/23 documented as of this encounter Additional Source Comments The information contained in this document represents components of the legal health record. It is not the complete legal health record.[facility]
--- OUTSIDE RECORDS SUMMARY | 2025-01-26 22:48 | XMS_ITS | Encounter Summary ---
Author Organization [facility] Address [address] [place] [address] Phone Care Team Providers Care Technical Training Manager Name Role Phone Beni Woodward MD Primary Care Provider [phone] Bertrand Hubbard MD Primary Care Provider [phone] Encounter Details Date Type Department Care Team (Late Contact Info) Description 12/13/2022 Procedure Pass [facility] - [address] [place] [address] Social History Tobacco Use Types Packs/Day Years [...] Encounters Date Type Department Care Team (Late Contact Info) Description 05/23/2025 3:15 PM EST Appointment [facility], Bone Density - [facility] [address] [place] [address] Cheryl Herzog NP [address] [place] [address] 05/27/2025 9:20 AM EST Office Visit [facility] 22 [facility] 3rd Floor, [address] [place] [address] Alexx Goodman MD 22 [facility], [address] [place] [address] [email or web address] documented as of this encounter Visit Diagnoses Not on filedocumented in this encounter Additional Health Concerns Infection Onset Date Last Indicated Resolved Time CoV-Risk Comment:Neg covid 03/28/2023 03/28/2023 03/29/2023 6:[address] documented as of this encounter Care Teams Technical Training Manager Relationship Specialty Start Date End Date Beni Woodward MD 300 [address] [address] PCP - General 04/20/17 03/04/23 Bertrand Hubbard MD 300 [address] [address] PCP - General Internal Medicine 03/05/23 documented as of this encounter Additional Source Comments The information contained in this document represents components of the legal health record. It is not the complete legal health record.[facility]
--- OUTSIDE RECORDS SUMMARY | 2025-01-26 22:48 | XMS_ITS | Encounter Summary ---
Author Organization [facility] Address [address] [facility] [address] [place] [address] Phone Care Team Providers Care Equal Opportunity Representative Name Role Phone Beni Woodward MD Primary Care Provider [phone] Bertrand Hubbard MD Primary Care Provider [phone] Encounter Details Date Type Department Care Team (Late st Contact Info) Description 12/23/2020 Procedure Pass [facility] - [address] [place] [address] Social History Tobacco Use Types Packs/Day Years Used Date Smoking Tobacco: Former Cigarettes Q uit: 1999 Smokeless Tobacco: Never Alcohol Use Standard Drinks/Week Comments Not Currently 0 (1 standard drink = 0.6 oz pur e alcohol) quit 1988 Comments No Sex and Gender Information Value [...] Info) Description 05/23/2025 3:15 PM EST Appointment [facility], [facility] 30 [place] [address] Cheryl Herzog NP 35 [facility] [address] [place] [address] 05/27/2025 9:20 AM EST Office Visit [facility] 22 [facility] 3rd Floor, [address] [place] [address] Alexx Goodman MD 22 [facility], [address] [place] [address] [email or web address] documented as of this encounter Visit Diagnoses Not on filedocumented in this encounter Additional Health Concerns Infection Onset Date Last Indicated Resolved Time CoV-Risk Comment:Neg covid 03/28/2023 03/28/2023 03/29/2023 6:[address] documented as of this encounter Care Teams Equal Opportunity Representative Relationship Specialty Start Date End Date Beni Woodward MD [address] [address] PCP - General 04/20/17 03/04/23 Bertrand Hubbard MD [address] [address] PCP - General Internal Medicine 03/05/23 documented as of this encounter Additional Source Comments The information contained in this document represents components of the legal health record. It is not the complete legal health record.[facility]
--- OUTSIDE RECORDS SUMMARY | 2025-01-26 22:48 | XMS_ITS | Encounter Summary ---
Author Organization [facility] Address [address] [facility] [address] [place] [address] Phone Care Team Providers Care Curb Worker Name Role Phone Bertrand Hubbard MD Primary Care Provider [phone] Encounter Details Date Type Department Care Team (Late st Contact Info) Description 03/28/2023 Procedure Pass [facility] 30 [place] [address] Social History Tobacco Use Types Packs/Day Years Used Date Smoking Tobacco: Former Cigarettes Q uit: 2000 Smokeless Tobacco: Never Alcohol Use Standard Drinks/Week [...] Date of Assessment Author No Risk Indicated 03/28/2023 4:55 PM EST Lisa Dumont RN * [place] Suicide Severity Rating Scale (Screener/Recent Self-Report) Question Answer Date of Assessment Author 1. Wish to be (Past 1 Month) No 03/28/2023 4:55 PM EST Sally Brown RN 2. Non-Specific Active Suicidal Thoughts (Past 1 Month) No 03/28/2023 4:55 PM EST Sally Brown RN 6. Suicidal Behavior (Lifetime) No 03/28/2023 4:55 PM EST Sally Brown RN documented as of this encounter Plan of Treatment Upcoming Encounters Date Type Department Care Team (Late st Contact Info) Description 05/23/2025 3:15 PM EST Appointment [facility] 30 [place] [address] Cheryl Herzog NP 35 [facility] [address] [place] [address] 05/27/2025 9:20 AM EST Office Visit [facility] 22 [facility] 3rd Floor, [address] [place] [address] Alexx Goodman MD 22 [facility], [address] [place] [address] [email or web address] documented as of this encounter Visit Diagnoses Not on filedocumented in this encounter Additional Health Concerns Infection Onset Date Last Indicated Resolved Time CoV-Risk Comment:Neg covid 03/28/2023 03/28/2023 03/29/2023 6:[address] documented as of this encounter Care Teams Curb Worker Relationship Specialty Start Date End Date Bertrand Hubbard MD [address] [place] [address] [place] [address] PCP - General Internal Medicine 03/05/23 documented as of this encounter Additional Source Comments The information contained in this document represents components of the legal health record. It is not the complete legal health record.[facility]
--- OUTSIDE RECORDS SUMMARY | 2025-01-26 22:48 | XMS_ITS | Encounter Summary ---
Author Organization [facility] Address [address] [place] [address] Phone Care Team Providers Care Assistant Chief Train Dispatcher Name Role Phone Bertrand Hubbard MD Primary Care Provider [phone] Encounter Details Date Type Department Care Team ([facility] st Contact Info) Description 09/05/2024 Transcribe Orders Virtual Department [address] [place] [address] Cheryl Herzog NP [address] [facility] 1 [place] [address] Osteopenia, unspecified location (Primary Dx) Social History Tobacco Use Types Packs/Day Years [...] EDT Gender Identity Choose not to disclose 4 12:36 PM EST Sexual Orientation Not on file Occupation Industry Job Start Date Job End Date Working Not on file Not on file Not on file documented as of this encounter Plan of Treatment Upcoming Encounters Date Type Department Care Team (Late st Contact Info) Description 05/23/2025 3:15 PM EST Appointment [facility], Bone [address] [address] Cheryl Herzog NP [address] [facility] [address] [place] [address] 05/27/2025 9:20 AM EST Office Visit [facility] [address] [place] [address] 3rd Floor, [address] [place] [address] Alexx Goodman MD [address] [facility], [address] [place] [address] [email or web address] Scheduled Orders Name Type Priority Associated Diagnoses Orde r Schedule DXA Screening Imaging Routine Osteopenia, unspecified location Expected: 10/05/2024, Expires: 09/05/2025 documented as of this encounter Visit Diagnoses Diagnosis Osteopenia, unspecified location- Primary documented in this encounter Care Teams Assistant Chief Train Dispatcher Relationship Specialty Start Date End Date Bertrand Hubbard MD [address] [place] [address] [place] [id number] PCP - General Internal Medicine 03/05/23 documented as of this encounter Additional Source Comments The information contained in this document represents components of the legal health record. It is not the complete legal health record.[facility]
--- OUTSIDE RECORDS SUMMARY | 2025-01-26 22:48 | XMS_ITS | Encounter Summary ---
Author Organization [facility] Address [address] [facility] [address] [place] [address] Phone Care Team Providers Care Conference Assistant Name Role Phone Bertrand Hubbard MD Primary Care Provider [phone] Encounter Details Date Type Department Care Team (Latest Contact Info) Description 02/16/2024 Transcribe Orders Virtual Department [address] [place] [address] Bertrand Hubbard MD [address] [facility] [address] [place] [address] Breast screening (Primary Dx) Social History Tobacco Use Types [...] 7:11 PM EST Morelia Chen RN * [place] Suicide Severity Rating Scale (Screener/Recent Self-Report) Question Answer Date of Assessment Author 1. Wish to be (Past 1 Month) No 024 7:11 PM Gerard Andrews RN 2. Non-Specific Active Suici aga Thoughts (Past 1 Month) No 02/18/2024 7:11 PM Gerard Andrews RN 6. Suicidal Behavior (Lifetime) No 4 7:11 PM Gerard Andrews RN documented as of this encounter Plan of Treatment Upcoming Encounters Date Type Department Care Team (Late st Contact Info) Description 05/23/2025 3:15 PM EST Appointment [facility], [facility] [address] [place] [address] Cheryl Herzog NP [address] [facility] [address] [place] [address] 05/27/2025 9:20 AM EST Office Visit [facility] [address] [facility] 3rd Floor, [address] [place] [address] Alexx Goodman MD [address] [facility], [address] [place] [phone] [email or web address] documented as of this encounter Results * [...] MD IMG MG EXAMS Final Res ult documented in this encounter Visit Diagnoses Diagnosis Breast screening- Primary Breast screening, unspecified Breast screening Breast screening, unspecified documented in this encounter Care Teams Conference Assistant Relationship Specialty Start Date End Date Bertrand Hubbard MD [address] [place] [address] PCP - General Internal Medicine 03/05/23 documented as of this encounter Additional Source Comments The information contained in this document represents components of the legal health record. It is not the complete legal health record.[facility]
--- OUTSIDE RECORDS SUMMARY | 2025-01-26 22:48 | XMS_ITS | Encounter Summary ---
Author Organization [facility] Address [address] [facility] [address] [place] [address] Phone Care Team Providers Care Field Hockey Coach Name Role Phone Beni Woodward MD Primary Care Provider Bertrand Hubbard MD Primary Care Provider [phone] Encounter Details Date Type Department Care Team (Latest Contact Info) Description 12/13/2022 Transcribe Orders Virtual Department [address] [place] [address] Bertrand Hubbard MD [address] [facility] [address] [place] [address] Breast screening (Primary Dx) Social History Tobacco [...] Info) Description 05/23/2025 3:15 PM EST Appointment [facility], Bone Density - [facility] [address] [place] [address] Cheryl Herzog NP [address] [place] [address] 05/27/2025 9:20 AM EST Office Visit [facility] [address] [facility] 3rd Floor, [address] [place] [address] Alexx Goodman MD [address] [facility], [address] [place] [address] [email or web address] documented as of this encounter Results * BI MAMMOGRAM SCREENING WITH TOMOSYNTHESIS WITH CAD (BILATERAL) (12/21/2022 2:10 PM EDT) Anatomical Region Laterality Modality Breast Left, Breast Right, Breast Bilateral Bila teral Mammography 01/05/2023 12:2 6 PM EDT Impressions 01/05/2023 12:28 PM EDT No findings suspicious for malignancy are identified. In the absence of a worrisome palpable abnormality, annual screening mammography is recommended. BI-RADS CATEGORY: 1 - Negative. DENSITY: The breast tissue is almost entirely fat. Narrative 01/05/2023 12:28 PM EDT AVAILABLE COMPARISON: 03/24/2021 through 02/27/2003 Bilateral 3-D tomosynthesis with 2-D reconstructions in the CC and MLO projection. Computer-aided detection system was utilized. No new mass, asymmetry, architectural distortion or suspicious calcifications have become apparent in either breast. Procedure Note Pepe Alamo MD - 01/05/2023 AVAILABLE COMPARISON: 03/24/2021 through 02/27/2003 Bilateral 3-D tomosynthesis with 2-D reconstructions in the CC and MLOprojection. Computer-aided detection system was utilized. No new mass, asymmetry, architectural distortion or suspiciouscalcifications have become apparent in either breast. IMPRESSION: No findings suspicious for malignancy are identified. In the absence of aworrisome palpable abnormality, annual screening mammography isrecommended. BI-RADS CATEGORY: 1 - Negative. DENSITY: The breast tissue is almost entirely fat. Bertrand Hubbard MD IMG MG EXAMS Final Res ult documented in this encounter Visit Diagnoses Diagnosis Breast screening- Primary Breast screening, unspecified Breast screening Breast screening, unspecified documented in this encounter Additional Health Concerns Infection Onset Date Last Indicated Resolved Time CoV-Risk Comment:Neg covid 03/28/2023 03/28/2023 03/29/2023 6:[address] documented as of this encounter Care Teams Field Hockey Coach Relationship Specialty Start Date End Date Beni Woodward MD [address] [address] PCP - General 04/20/17 03/04/23 Bertrand Hubbard MD [address] [address] PCP - General Internal Medicine 03/05/23 documented as of this encounter Additional Source Comments The information contained in this document represents components of the legal health record. It is not the complete legal health record.[facility]
[2025-01-26 22:49] LABS: Cannabinoid Screen Urine Not Detected (Not Detect)
[2025-01-26 22:49] LABS: Alanine Aminotransferase 13 U/L (0-31); Albumin Level 3.7 g/dL (3.5-5.0); Alkaline Phosphatase 70 U/L (39-117); Anion Gap 18 (12-20); Aspartate Amino Transferase 43 U/L (5-31); Blood Urea Nitrogen 17 mg/dL (9-16); Calcium 7.9 mg/dL (8.4-10.2); Carbon Dioxide 19 mmol/L (22-29); Chloride 110 mmol/L (96-108); Creatinine Clr Calc Pharmacy 54.1; Estimated Glomerular Filt Rate > 60; Magnesium 1.6 mg/dL (1.6-2.6); Potassium 2.8 mmol/L (3.3-5.1); Sodium 144 mmol/L (135-145); Total Protein 5.8 g/dL (6.5-8.0)
[2025-01-26 22:51] LABS: NT Pro B Type Natriuretic Pept 445.2 pg/mL (<300)
[2025-01-26 23:01] LABS: Troponin-I High Sensitivity 371.6 ng/L (<3.5-17.0)
[2025-01-26] MEDS: Hum Prothrombin Cplx(PCC)4Fact 2,000 UNIT in Container,Empty 0 ML 480 UNIT IV (23:01)
[2025-01-26] MEDS: vancomycin HCL 1,000 MG, vancomycin HCL 750 MG in 0.9 % Sodium Chloride 500 ML 267.5 MG IV (23:17)
--- NOTE | 2025-01-26 23:41 | PC.NURSE ---
late entry- pt biba from home for unwitnessed cardiac arrest, pt LWKT of 630am per daughter, daughter went to pt house and found pt mother down and ems was called. on ems arrival pt was found apenic and unresponsive. CPR initiated at 2054 and ROSC obtained at 2056. pt arrived to [facility] at 2139. pt has BMV in place with manual respirations and ems administered 1000ml ns. 2139- pt arrived, ekg obtained, poc obtained and 20g placed in left ac. 2145- ketamine and Jason given at this time for sedation, and at 2146 pt intubated with 7.5 tube and 20 at the lip. 2151- 14F OG tube placed by RANDELL Davidson with positive bowel sounds and confirmed with xray and placed on intermittent suction. 2224- pt taken to ct with rt and this rn, taken back to room at 2234. MD Del Real at bedside, pt [place] to 30bpm, 1amp atropine given and levophed started per jun. 6- 20f central line placed by RANDELL Davidson. 2325- Bear hugger placed per MD Collins. see jun for titration and medication administrations
[2025-01-27] VITALS (9 sets, daily range): BP systolic 112–151; BP diastolic 56–77; PULSE 80–88; RESP 12–20; TEMP 34–34.3; O2SAT 98–99
--- NOTE | 2025-01-27 00:18 | PC.NURSE ---
report given to Yoana Gan at [facility] @0014
[2025-01-27 00:23] LABS: Reflex Lactate? Lactic Acid Added
--- NOTE | 2025-01-27 00:50 | PC.NURSE ---
ems at bedside for report and transport at this time
--- NOTE | 2025-01-27 01:28 | PC.NURSE ---
pt mediations stopped in jun as pt was transported to [facility] at this time
[2025-01-28 11:36] LABS: Glucose, Whole Blood 187 mg/dL (60-115)
== END 2025-01-27 01:28 | disposition short-term general hospital (02) ==
PROVIDERS: Physician Assistant Medical; Emergency Provider Emergency Medicine
DX: I60.9 Nontraumatic subarachnoid hemorrhage, unspecified (principal); I61.5 Nontraumatic intracerebral hemorrhage, intraventricular; I61.9 Nontraumatic intracerebral hemorrhage, unspecified; D68.32 Hemorrhagic disorder due to extrinsic circulating anticoagulants; T45.515A Adverse effect of anticoagulants, initial encounter; Y92.9 Unspecified place or not applicable; E87.6 Hypokalemia; E87.20 Acidosis, unspecified; I24.89 Other forms of acute ischemic heart disease; R29.731 NIHSS score 31
CPT/HCPCS: 36415; 70450; 71045; 80053; 80307; 81001; 82803; 82947; 83605; 83735; 83880; 84484; 85025; 85610; 87040; 93005; 94002; 96365; 96366; 96367; 96368; 96375; 99285; 99291; 99292; J0461; J1610; J2543; J2704; J3374; J7131; J7168

== ENCOUNTER → 2025-01-26 21:54 | Outpatient (BNV) | payer MEDICARE, SELFPAY | PROVIDERS: Emergency Provider Emergency Medicine; Visit Provider Internal Medicine Cardiovascular Disease | DX: R00.0 Tachycardia, unspecified (principal) | CPT/HCPCS: 93010 ==

== ENCOUNTER → 2025-01-26 21:54 | Outpatient (BNV) | payer MEDICARE, SELFPAY | PROVIDERS: Emergency Provider Emergency Medicine; Visit Provider Radiology Diagnostic Radiology | DX: I61.8 Other nontraumatic intracerebral hemorrhage (principal); G93.6 Cerebral edema; I60.9 Nontraumatic subarachnoid hemorrhage, unspecified; J98.4 Other disorders of lung; Z97.8 Presence of other specified devices | CPT/HCPCS: 70450; 71045 ==